=== PATIENT | female | born 1980 | race Hispanic/Latino ===

== ENCOUNTER 2017-02-02 19:11 | Emergency (ER) | payer OTHER ==
[~2017-02-02] VITALS: Ht 160 cm; Wt 81.6 kg
--- NOTE | 2017-02-02 19:17 | ED SKIN/ALLERGY COMPLAINT ---
History of Present Illness General Chief Complaint: General Adult Stated Complaint: PT IS HAVING A REACTION Source: patient, family Exam Limitations: no limitations Vital Signs & Intake/Output Vital Signs & Intake/Output Vital Signs Date Time Temp Pulse Resp B/P B/P Pulse O2 O2 Flow FiO2 Mean Ox Delivery Rate 02/02 2137 98.7 53 18 141/63 96 02/02 2135 98.7 102 18 122/69 99 02/02 1951 98.7 94 20 136/57 100 Nasal 1.0L Cannula 02/02 1925 100 Nasal 3.0L Cannula 02/02 1922 98.6 88 20 155/85 100 Nasal 3.0L Cannula Allergies Coded Allergies: azithromycin (Severe, HIVES 02/02/17) turkey (ANAPHYLASIX 02/02/17) Reconcile Medications Epinephrine (Epipen 2-Jesús) 0.3 MG/0.3 ML AUTO.INJCT 1 INJ IM AD PRN severe allergy Prednisone 20 MG TABLET 1 TAB PO BID allergy Triage Nurses Notes Reviewed? yes HPI: Patient is a 36-year-old female presents complaining of severe allergic reaction. 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 This occurred just prior to arrival. Patient complaining of severe dyspnea, throat swelling sensation. Patient has not taken any medication prior to arrival to the emergency department. Patient denies chest pain, nausea, vomiting, tongue swelling, rash (AMANDA LUBIN) Past History Travel History Traveled to [place] past 21 day No Medical History Any Pertinent Medical History? see below for history Other Medical Hx: anaphylaxis to turkey Surgical History Surgical History: non-contributory Family History Hx Contributory? No (AMANDA LUBIN) Review of Systems Review of Systems Constitutional: Reports: no symptoms. EENTM: Reports: throat swelling. Respiratory: Reports: short of breath. Cardiovascular: Denies: chest pain, syncope. GI: Denies: abdominal pain, vomiting. Genitourinary: Reports: no symptoms. Musculoskeletal: Reports: no symptoms. Skin: Denies: rash. Neurological/Psychological: Reports: no symptoms. Hematologic/Endocrine: Reports: no symptoms. Immunologic/Allergic: Reports: no symptoms. (AMANDA LUBIN) Physical Exam Physical Exam General Appearance: alert, awake, severe distress Head: atraumatic, normal appearance Eyes: Bilateral: normal appearance, PERRL, EOMI. Ears, Nose, Throat: positive stridor no tongue, pharyngeal or uvula swelling Neck: normal inspection, supple, full range of motion Respiratory: mild diffuse expiratory wheezing Cardiovascular: regular rate/rhythm Gastrointestinal: soft, non-tender Back: normal inspection, normal range of motion Extremities: normal inspection, normal capillary refill, normal range of motion, no edema Neurologic/Psych: no motor/sensory deficits, awake, alert, oriented x 3, normal gait, normal mood/affect Skin: intact, normal color, warm/dry (AMANDA LUBIN) Progress Differential Diagnosis: abscess/cellulitis, allergic reaction, anaphylaxis, angioedema, asthma, drug reaction Plan of Care: Current Medications Sig/Walker Start time Last Medication Dose Stop Time Status Admin Diphenhydramine HCl 50 MG ONCE ONE 02/02 1915 UNVr (Benadryl) 02/03 1916 Epinephrine 0.3 MG ONCE ONE 02/02 1915 UNVr (Adrenalin 1:1000) 02/03 1916 Famotidine 20 MG ONCE ONE 02/02 1915 UNVr (Pepcid) 02/03 1916 Methylprednisolone 125 MG ONCE ONE 02/02 1915 UNVr (Solu Medrol) 02/03 1916 1935: Patient clinically improving. Stridor resolved, lungs clear throughout. 1950: Patient improving, no signs of worsening reaction or rebound anaphylaxis. 1999: Patient signed out to Dr. Flores (AMANDA LUBIN) Comments: Declines to wait 4 hour observation. No complaints, VSS. (ELIJAH GALLOWAY,GABY) Departure Departure Condition: Stable Departure Forms: Customer Survey General Discharge Information (AMANDA LUBIN) Departure Time of Disposition: 2230 Disposition: HOME OR SELF CARE Clinical Impression Primary Impression: Anaphylaxis Qualifiers: Encounter type: initial encounter Qualified Code: T78.2XXA - Anaphylactic shock, unspecified, initial encounter Prescriptions: Current Visit Scripts Epinephrine (Epipen 2-Jesús) 1 INJ IM AD PRN severe allergy #1 2 Prednisone 1 TAB PO BID #10 TAB PA/SALES REPRESENTATIVE CONSULTANT Co-Sign Statement Statement: ED Attending supervision documentation- x I saw and evaluated the patient. I have also reviewed all the pertinent lab results and diagnostic results. I agree with the findings and the plan of care as documented in the PA's/SALES REPRESENTATIVE CONSULTANT's documentation. [] I have reviewed the ED Record and agree with the PA's/SALES REPRESENTATIVE CONSULTANT's documentation. [] Additions or exceptions (if any) to the PAs/SALES REPRESENTATIVE CONSULTANT's note and plan are summarized below: [] (ELIJAH GALLOWAY,GABY) Critical Care Note Critical Care Note Critical Care Time: 30-74 min (VELMA YIP,AMANDA)
[2017-02-02 21:37] VITALS: BP 141/63
[2017-02-02] MEDS ORDERED: EPIPEN 2-P0.3 MG/0.3 IM (22:34)
[2017-02-02] MEDS ORDERED: PREDNISONE20 M1 PO (22:34)
== END 2017-02-02 22:40 ==
LOC: ERH 19:11 → EDBD 19:11 → ERH 19:44
DX: T78.09XA Anaphylactic reaction due to other food products, initial encounter (principal)
CPT/HCPCS: 96372; 96374; 96375; 99291